=== PATIENT | male | born 1985 | race Two or more races ===

== ENCOUNTER 2020-12-23 12:30 | Emergency (ER) | payer OTHER ==
[~2020-12-23] VITALS: Ht 180.3 cm; Wt 98.0 kg
[2020-12-23] MEDS ORDERED: ETOMIDATE (2MG/ML) 20ML VIAL IV ONE ×3 (14:13→15:15)
[2020-12-23 15:50] VITALS: BP 135/79
== END 2020-12-23 15:52 ==
LOC: ER 12:30 → EEVIPCON 12:30 → ER 15:52
DX: S43.085A Other dislocation of left shoulder joint, initial encounter (principal); Z90.89 Acquired absence of other organs; Z98.890 Other specified postprocedural states; Y04.8XXA Assault by other bodily force, initial encounter; Y93.89 Activity, other specified; Y92.89 Other specified places as the place of occurrence of the external cause; Y99.8 Other external cause status
CPT/HCPCS: 23650; 73020; 73030; 99152

== ENCOUNTER 2021-02-05 17:17 | Emergency (ER) | payer OTHER ==
[~2021-02-05] VITALS: Ht 182.9 cm; Wt 98.0 kg
[2021-02-05] MEDS ORDERED: ETOMIDATE (2MG/ML) 20ML VIAL IV ONE (19:30)
[2021-02-05 21:20] VITALS: BP 159/103
== END 2021-02-05 22:20 | disposition home or self-care (01) ==
LOC: EEVIPCON 17:17 → ER 17:17
DX: M24.412 Recurrent dislocation, left shoulder (principal); Z90.49 Acquired absence of other specified parts of digestive tract; Z90.89 Acquired absence of other organs; X50.1XXA Overexertion from prolonged static or awkward postures, initial encounter; Y93.89 Activity, other specified; Y92.89 Other specified places as the place of occurrence of the external cause; Y99.8 Other external cause status
CPT/HCPCS: 23650; 73030